=== PATIENT | male | born 1945 | race Caucasian/White ===

== ENCOUNTER 2022-10-03 08:38 | Inpatient (IN) | payer MEDICARE, OTHER ==
[2022-10-03] MEDS ORDERED: HYDROmorphone 0.5 MG/0.5 ML SYRINGE IVP STA ×2 (08:43→10:34)
--- NOTE | 2022-10-03 09:16 | ED ---
General Adult HPI - General Chief complaint: Shortness of Breath Stated complaint: sob Time Seen by Provider: 10/03/22 08:45 Source: patient, RN notes reviewed, old records reviewed Mode of arrival: ambulatory Limitations: no limitations - History of Present Illness Initial comments: This is a 77-year-old male who presents emergency department from [facility]. Patient has lung cancer and he had a pigtail placed to drain the pleural effusion however he had difficulty breathing so he came in last night. I was told by the ER physician at that facility that he also had a pneumothorax which they reduced by using some intermittent wall suction. Patient denies any fever or chills. Patient states the difficulty breathing has been getting worse over the last few days. Patient states he has chest pain and it makes it difficult to take a deep breath. Patient denies any abdominal pain. Patient has lightheadedness dizziness. Patient has any palpitations. - Related Data Home Medications Medication Instructions Recorded Confirmed Albuterol Sulfate [Albuterol 1 - 2 puff INHALATION RT-Q4H PRN 09/12/22 09/26/22 Sulfate Hfa] [id number] 2 tab PO DAILY 09/12/22 09/26/22 [Excedrin] Cayenne Pepper(Unknown) 1 cap PO DAILY 09/12/22 09/26/22 Famotidine [Pepcid] 20 mg PO DAILY 09/12/22 09/26/22 Loperamide HCl [Imodium A-D] 2 mg PO DAILY PRN 09/12/22 09/26/22 Tiotropium 2.5 Mcg/Puff [Spiriva 1 puff INHALATION RT-DAILY 09/12/22 09/26/22 Respimat 2.5 Mcg] predniSONE See Taper PO HS 09/26/22 09/26/22 Previous Rx's Medication Instructions Recorded Budesonide/Formoterol Fumarate 1 puff INHALATION BID #10.2 gm 09/15/22 [Symbicort 80-4.5 Mcg Inhaler] Cyclobenzaprine [Flexeril] 10 mg PO HS #30 tab 09/29/22 guaiFENesin [Mucinex] 600 mg PO QID #100 tab 09/29/22 Allergies Allergy/AdvReac Type Severity Reaction Status Date / Time azithromycin [From Zithromax] AdvReac Nausea & Verified 10/03/22 08:46 Vomiting Review of Systems ROS Statement: Those systems with pertinent positive or pertinent negative responses have been documented in the HPI. ROS Other: All systems not noted in ROS Statement are negative. Past Medical History Past Medical History: Cancer, COPD, GERD/Reflux Additional Past Medical History / Comment(s): Recently diagnosed metastatic adenocarcinoma, lung primary, history of colitis History of Any Multi-Drug Resistant Organisms: None Reported Additional Past Surgical History / Comment(s): cyst to watts apple 40 yrs ago Past Anesthesia/Blood Transfusion Reactions: No Reported Reaction Past Psychological History: No Psychological Hx Reported Smoking Status: Former smoker Past Alcohol Use History: Rare Past Drug Use History: None Reported - Past Family History Mother Family Medical History: Dementia Additional Family Medical History / Comment(s): Hepatitis C after receiving a blood transfusion and later developed cirrhosis of the liver Father Family Medical History: Cancer Additional Family Medical History / Comment(s): Past away at age 39 from Hodgkin's disease General Exam - General Exam Comments Initial Comments: GENERAL: Patient is well-developed and well-nourished. Patient is nontoxic and well- hydrated and is in mild distress. ENT: Neck is soft and supple. No significant lymphadenopathy is noted. Oropharynx is clear. Moist mucous membranes. Neck has full range of motion without eliciting any pain. EYES: The sclera were anicteric and conjunctiva were pink and moist. Extraocular movements were intact and pupils were equal round and reactive to light. Eyelids were unremarkable. PULMONARY: Patient has decreased breath sounds on the right. CARDIOVASCULAR: Patient is tachycardic at about 110 beats a minute ABDOMEN: Soft and nontender with normal bowel sounds. SKIN: Skin is clear with no lesions or rashes and otherwise unremarkable. NEUROLOGIC: Patient is alert and oriented x3. Cranial nerves II through XII are grossly intact. Motor and sensory are also intact. Normal speech, volume and content. Symmetrical smile. MUSCULOSKELETAL: Normal extremities with adequate strength and full range of motion. No lower extremity swelling or edema. No calf tenderness. LYMPHATICS: No significant lymphadenopathy is noted PSYCHIATRIC: Normal psychiatric evaluation. Limitations: no limitations Course Vital Signs 10/03/22 10/03/22 10/03/22 08:42 08:50 10:18 Temperature 98.1 F Pulse Rate 53 L 116 H Respiratory 24 22 20 Rate Blood Pressure 126/73 104/71 O2 Sat by Pulse 15 L 94 L Oximetry Medical Decision Making - Medical Decision Making EKG was interpreted by myself as a sinus tachycardia with occasional PAC at a rate of 109 bpm WV interval is 152 QRS 102 QT interval 370 QTC is 371. Patient's EKG shows no ST segment elevation or depression. Was pt. sent in by a medical professional or institution (, MARGRET, HEALTH SCIENCE INSTRUCTOR, urgent care, hospital, or group home...) When possible be specific @ -Patient was sent to us by an ER physician at [facility] Did you speak to anyone other than the patient for history (EMS, parent, family, police, friend...)? What history was obtained from this source @ -EMS gave us the history from the other hospital as to the physician who called from [facility] Did you review nursing and triage notes (agree or disagree)? Why? @ -I reviewed and agree with nursing and triage notes Were old charts reviewed (outside hosp., previous admission, EMS record, old EKG, old radiological studies, urgent care reports/EKG's, group home records)? Report findings @ -I reviewed all lab work from the previous hospital as well as CAT scan and x-rays. Differential Diagnosis (chest pain, altered mental status, abdominal pain women, abdominal pain men, vaginal bleeding, weakness, fever, dyspnea, syncope, headache, dizziness, GI bleed, back pain, seizure, CVA, palpatations, mental health, musculoskeletal)? @ -Differential Dyspnea: Coronary syndrome, arrhythmia, tamponade, asthma, COPD, pulmonary embolism, pneumonia, pneumothorax, pulmonary effusion, anaphylaxis, diabetic ketoacidosis, flailed chest, pulmonary contusion, diaphragmatic rupture, anemia, neuromuscular, this is not meant to be an all-inclusive list. EKG interpreted by me (3pts min.). @ -As above X-rays interpreted by me (1pt min.). @ -Chest x-ray was interpreted by myself shows 75% pneumothorax on the right pigtail. Patient placed CT interpreted by me (1pt min.). @ -None done U/S interpreted by me (1pt. min.). @ -None done What testing was considered but not performed or refused? (CT, X-rays, U/S, labs)? Why? @ -None What meds were considered but not given or refused? Why? @ -None Did you discuss the management of the patient with other professionals (professionals i.e. Dr., PA, HEALTH SCIENCE INSTRUCTOR, lab, RT, psych nurse, social science instructor, lead generation specialist, teacher, correctional officer sergeant, caseworker intake)? Give summary @ -I spoke with Dr. Richards and his nurse practitioner Garima. Was smoking cessation discussed for >3mins.? @ -No Was critical care preformed (if so, how long)? @ -No Were there social determinants of health that impacted care today? How? (Homelessness, low income, unemployed, alcoholism, drug addiction, transportation, low edu. Level, literacy, decrease access to med. care, prison, rehab)? @ -No Was there de-escalation of care discussed even if they declined (Discuss DNR or withdrawal of care, Hospice)? DNR status @ -No What co-morbidities impacted this encounter? (DM, HTN, Smoking, COPD, CAD, Cancer, CVA, ARF, Chemo, Hep., AIDS, mental health diagnosis, sleep apnea, morbid obesity)? @ -Lung cancer Was patient admitted / discharged? Hospital course, mention meds given and route, prescriptions, significant lab abnormalities, going to OR and other pertinent info. @ -Patient has a pneumothorax and he came down with the patient to a Pleur-evac and patient will be admitted to Dr. Casas whom I spoke with. Also Dr. Sanchez will be consulted. Undiagnosed new problem with uncertain prognosis? @ -No Drug Therapy requiring intensive monitoring for toxicity (Heparin, Nitro, Insulin, Cardizem)? @ -No Were any procedures done? @ -No Diagnosis/symptom? @ -Pneumothorax Acute, or Chronic, or Acute on Chronic? @ -Acute Uncomplicated (without systemic symptoms) or Complicated (systemic symptoms)? @ -Complicated Side effects of treatment? @ -No Exacerbation, Progression, or Severe Exacerbation? @ -No Poses a threat to life or bodily function? How? (Chest pain, [place], [place], pneumonia, PE, COPD, DKA, ARF, appy, cholecystitis, CVA, Diverticulitis, Homicidal, Suicidal, threat to staff... and all critical care pts) @ -Yes is completely to hypoxia Disposition Clinical Impression: Pneumothorax, History of lung cancer Disposition: ADMITTED IP TO THIS HOSP Referrals: Freddy Solano MD [Primary Care Provider] - 1-2 days Time of Disposition: 10:38
--- NOTE | 2022-10-03 09:29 | XR ---
EXAMINATION TYPE: XR chest 2V DATE OF EXAM: 10/03/2022 8:59 AM COMPARISON: Chest radiographs from 09/28/2022 TECHNIQUE: XR chest 2V Frontal and lateral views of the chest. CLINICAL INDICATION:Male, 77 years old with history of Difficulty breathing ; FINDINGS: Lungs/Pleura: The left lung is clear. There is layering right pleural effusion and pneumothorax. Pulmonary vascularity: Unremarkable. Heart/mediastinum: Cardiomediastinal silhouette is unremarkable. Musculoskeletal: No acute osseous pathology. Other findings: None Lines/Tubes: Right thoracotomy tube with pneumothorax appears similar. IMPRESSION: Persistent right-sided hydropneumothorax with thoracotomy tube in place
[2022-10-03] MEDS ORDERED: SODIUM CHLORIDE 0.9% 1,000 ML IV ONE (10:38)
--- NOTE | 2022-10-03 11:27 | P.CNPUL ---
History of Present Illness Consult date: 10/03/22 Reason for consult: dyspnea, chest pain History of present illness: This is a 77-year-old male who presents emergency department from [facility]. This patient was recently diagnosed having a stage IV adenocarcinoma of the lung. He had a right-sided pleural effusion. Thoracentesis was done and the pleural fluid cytology was positive for malignancy. Based on all this, the patient was given a Pleurx catheter and the patient was discharged home and he was supposed to undergo outpatient drainage of the pleural fluid and follow-up with oncology. 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 Noted the patient had difficulty breathing so he came in last night. He went to [facility] and a chest x- ray was done which again showed a trapped lung with a right lung has not completely expanded and the rise catheter remains in a good location.. Patient denies any fever or chills. Patient states the difficulty breathing has been getting worse over the last few days. Patient states he has chest pain and it makes it difficult to take a deep breath. Patient denies any abdominal pain. Patient has lightheadedness dizziness. Patient has any palpitations. He is currently on 15 L of oxygen by nasal cannula. He is running a sodium level of 125 with a potassium level of 4.6, chlorides 91 with a bicarb of 29. His chest x-ray showed a persistent right-sided hydropneumothorax,. The patient told me that the visiting nurses came out to his house and tried to drain the pleural fluid on which is essentially 2 days ago under was no significant output. Subsequently became more short of breath and up coming back to the hospital. A CAT scan of the chest that was done at [facility] showed a right-sided hydropneumothorax. There was right-sided pleural fluid and the pleural catheter was directed posteriorly. No evidence of any pulmonary embolism. Left lung was essentially clear. PET scan was done outpatient basis and ovaries results are not out yet. Based on my review, the patient has right hilar and subcarinal lymphadenopathy which has shown increased metabolic activity and there were patent avid. At the same time, the right lower lobe was showing intense metabolic activity and there was a right-sided hydropneumothorax. Official report is still pending on the PET/CT. Review of Systems Constitutional: Reports as per HPI Eyes: denies as per HPI, denies blurred vision, denies bulging eye, denies decreased vision, denies diplopia, denies discharge, denies dry eye, denies irritation, denies itching, denies pain, denies photophobia, denies loss of peripheral vision, denies loss of vision, denies tunnel vision/blind spots Ears: deny: decreased hearing, ear discharge, earache, tinnitus Ears, nose, mouth and throat: Reports as per HPI Breasts: absent: as per HPI, gynecomastia Cardiovascular: Reports dyspnea on exertion Respiratory: Reports dyspnea Gastrointestinal: Reports as per HPI Genitourinary: Reports as per HPI Musculoskeletal: Reports as per HPI Musculoskeletal: absent: ankle pain, ankle stiffness, ankle swelling Integumentary: Reports as per HPI Neurological: Reports as per HPI Psychiatric: Reports as per HPI Endocrine: Reports as per HPI Hematologic/Lymphatic: Reports as per HPI Allergic/Immunologic: Reports as per HPI Past Medical History Past Medical History: Cancer, COPD, GERD/Reflux Additional Past Medical History / Comment(s): Recently diagnosed metastatic adenocarcinoma, lung primary, history of colitis History of Any Multi-Drug Resistant Organisms: None Reported Additional Past Surgical History / Comment(s): cyst to watts apple 40 yrs ago Past Anesthesia/Blood Transfusion Reactions: No Reported Reaction Past Psychological History: No Psychological Hx Reported Smoking Status: Former smoker Past Alcohol Use History: Rare Past Drug Use History: None Reported - Past Family History Mother Family Medical History: Dementia Additional Family Medical History / Comment(s): Hepatitis C after receiving a bl ood transfusion and later developed cirrhosis of the liver Father Family Medical History: Cancer Additional Family Medical History / Comment(s): Past away at age 39 from Hodgkin's disease Medications and Allergies Home Medications Medication Instructions Recorded Confirmed Type Albuterol Sulfate [Albuterol 1 - 2 puff INHALATION RT-Q4H PRN 09/12/22 10/03/22 History Sulfate Hfa] [id number] 2 tab PO DAILY 09/12/22 10/03/22 History [Excedrin] Cayenne Pepper(Unknown) 1 cap PO DAILY 09/12/22 10/03/22 History Famotidine [Pepcid] 20 mg PO DAILY 09/12/22 10/03/22 History Loperamide HCl [Imodium A-D] 2 mg PO DAILY PRN 09/12/22 10/03/22 History Tiotropium 2.5 Mcg/Puff [Spiriva 1 puff INHALATION RT-DAILY 09/12/22 10/03/22 History Respimat 2.5 Mcg] Cyclobenzaprine [Flexeril] 10 mg PO HS #30 tab 09/29/22 10/03/22 Rx guaiFENesin [Mucinex] 600 mg PO QID #100 tab 09/29/22 10/03/22 Rx Budesonide/Formoterol Fumarate 1 puff INHALATION RT-BID 10/03/22 10/03/22 History [Symbicort 80-4.5 Mcg Inhaler] Allergies Allergy/AdvReac Type Severity Reaction Status Date / Time azithromycin [From Zithromax] AdvReac Nausea & Verified 10/03/22 08:46 Vomiting Physical Exam Vitals: Vital Signs Temp Pulse Resp BP Pulse Ox 10/03/22 10:18 116 H 20 104/71 94 L 10/03/22 08:50 22 10/03/22 08:42 98.1 F 53 L 24 126/73 15 L Intake and Output 10/02/22 10/03/22 10/03/22 22:59 06:59 14:59 Other: Weight 70.307 kg No acute distress, oriented 3. Currently on 15 L of oxygen. No respiratory distress, audible wheezing, or use of accessory muscles. HEENT examination is grossly unremarkable. Neck supple. Full range of motion. No adenopathy thyromegaly or neck vein distention. Cardiovascular examination reveals regular rhythm rate. S1-S2 normal. No S3 or S4. No discernible murmur noted. Heart rate 87 bpm. Lungs Left lung appears clear. Currently on 3 L of oxygen by nasal cannula. Patient also has a right-sided Pleurx catheter in place. Abdomen soft bowel sounds are heard. No masses or tenderness. Extremities are intact. No cyanosis or clubbing. There is lower extremity e isabell. Skin is without rash or lesion. Neurologic examination is brief but nonfocal. Results - Diagnostic Findings Chest x-ray: image reviewed Assessment and Plan Plan: Stage IV adenocarcinoma of the lung Recurrent malignant right-sided pleural effusion, secondary to adenocarcinoma of the lung. The patient is post Pleurx catheter insertion. There is a possibility the Pleurx catheter is not functioning appropriately. Unable to drain The fluid by the visiting nurses. Furthermore, the CAT scan of the chest shows that the catheter tip is within the right hemithorax. Nevertheless, there is persistent hydropneumothorax in the right lung. I do believe that the right lung is essentially trapped and there is significant amount of tumor and the posterior right lower lobe. At same time, there is a possibility that the patient's pleural catheter is plugged are not sufficiently draining/malfunctioning of this persistent hydropneumothorax despite attempts to drain Trapped lung with residual pneumothorax on the right which is estimated to be in the order of 50% , also rule out possibility of endobronchial tumor obstructing the right lower lobe bronchus. Acute hypoxic respiratory failure secondary to above and the patient, is currently on 15 L of oxygen by nasal cannula Shortness of breath secondary to above Recent diagnosis of lung cancer, adenocarcinoma, from pleural fluid analysis. 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 Prior history of heavy tobacco use. Remote history of positive PPD/latent TB infection (LTBI), treated with INH for 9 months. Plan: Attached a Pleurx catheter to pleural VAC If unable to drain the pleural fluid, may consider TPA Wean FiO2 as tolerated Resume all medications Prognosis remains poor based above-mentioned comorbidities. Consult cardiothoracic surgery
[2022-10-03] MEDS ORDERED: ALBUTEROL HFA INHALER INHALATION PRN (11:34)
--- NOTE | 2022-10-03 11:40 | P.HPIM ---
History of Present Illness This is a pleasant 77 years old male with past medical history of COPD, GERD/Reflux,Recently diagnosed metastatic adenocarcinoma, lung primary, history of colitis he was recently discharged from this hospital 3 days ago for recurrent malignant right-sided pleural effusion secondary to pulmonary adenocarcinoma. Status post Pleurx catheter insertion, at that time he had right leg pneumothorax about 50% with acute hypoxic respiratory failure. After discharge patient was getting progressive shortness of breath, he wants to [facility] where he was referred back to this facility on admission patient is afebrile, tachycardic, slightly tachypneic, he has difficulty talking because of the pleuritic chest pain, he is saturating 95% on 8 L oxygen via nasal cannula he has computed tomography scan done at [facility] showing no evidence of pulmonary embolism, large right-sided hydropneumothorax also there was right- sided chest tube anteriorly with possibility of tube malfunctioning. There is extensive right lower lobe consolidation and atelectasis with subcarinal lymphadenopathy patient afebrile, no leukocytosis, rest of CBC is unremarkable with a platelet 260 and hemoglobin 12.9 Sodium is low at 125, glucose 157 which is slightly up. Rest of the BMP, liver enzymes are unremarkable. INR is normal. Review of Systems Review of systems CONSTITUTIONAL: No fever, no malaise, no fatigue. HEENT: No recent visual problems or hearing problems. Denied any sore throat. CARDIOVASCULAR: No orthopnea, PND, no palpitations, no syncope. PULMONARY: No shortness of breath, no cough, no hemoptysis. GASTROINTESTINAL: No diarrhea, no nausea, no vomiting, no abdominal pain. Normoactive bowel sounds. NEUROLOGICAL: No headaches, no weakness, no numbness. HEMATOLOGICAL: Denies any bleeding or petechiae. GENITOURINARY: Denies any burning micturition, frequency, or urgency. MUSCULOSKELETAL/RHEUMATOLOGICAL: Denies any joint pain, swelling, or any muscle pain. ENDOCRINE: Denies any polyuria or polydipsia. Past Medical History Past Medical History: Cancer, COPD, GERD/Reflux Additional Past Medical History / Comment(s): Recently diagnosed metastatic adenocarcinoma, lung primary, history of colitis History of Any Multi-Drug Resistant Organisms: None Reported Additional Past Surgical History / Comment(s): cyst to watts apple 40 yrs ago Past Anesthesia/Blood Transfusion Reactions: No Reported Reaction Past Psychological History: No Psychological Hx Reported Smoking Status: Former smoker Past Alcohol Use History: Rare Past Drug Use History: None Reported - Past Family History Mother Family Medical History: Dementia Additional Family Medical History / Comment(s): Hepatitis C after receiving a blood transfusion and later developed cirrhosis of the liver Father Family Medical History: Cancer Additional Family Medical History / Comment(s): Past away at age 39 from H odgkin's disease Medications and Allergies Home Medications Medication Instructions Recorded Confirmed Type Albuterol Sulfate [Albuterol 1 - 2 puff INHALATION RT-Q4H PRN 09/12/22 10/03/22 History Sulfate Hfa] [id number] 2 tab PO DAILY 09/12/22 10/03/22 History [Excedrin] Cayenne Pepper(Unknown) 1 cap PO DAILY 09/12/22 10/03/22 History Famotidine [Pepcid] 20 mg PO DAILY 09/12/22 10/03/22 History Loperamide HCl [Imodium A-D] 2 mg PO DAILY PRN 09/12/22 10/03/22 History Tiotropium 2.5 Mcg/Puff [Spiriva 1 puff INHALATION RT-DAILY 09/12/22 10/03/22 History Respimat 2.5 Mcg] Cyclobenzaprine [Flexeril] 10 mg PO HS #30 tab 09/29/22 10/03/22 Rx guaiFENesin [Mucinex] 600 mg PO QID #100 tab 09/29/22 10/03/22 Rx Budesonide/Formoterol Fumarate 1 puff INHALATION RT-BID 10/03/22 10/03/22 History [Symbicort 80-4.5 Mcg Inhaler] Allergies Allergy/AdvReac Type Severity Reaction Status Date / Time azithromycin [From Zithromax] AdvReac Nausea & Verified 10/03/22 08:46 Vomiting Physical Exam Vitals: Vital Signs Temp Pulse Resp BP Pulse Ox 10/03/22 11:07 98.1 F 112 H 20 116/83 95 10/03/22 10:18 116 H 20 104/71 94 L 10/03/22 08:50 22 10/03/22 08:42 98.1 F 53 L 24 126/73 15 L Intake and Output 10/02/22 10/03/22 10/03/22 22:59 06:59 14:59 Other: Weight 70.307 kg GENERAL: The patient is alert and oriented x3, not in any acute distress. Well developed, well nourished. HEENT: Pupils are round and equally reacting to light. EOMI. No scleral icterus. No conjunctival pallor. Normocephalic, atraumatic. No pharyngeal erythema. No thyromegaly. CARDIOVASCULAR: S1 and S2 present. No murmurs, rubs, or gallops. PULMONARY: Chest is clear to auscultation, no wheezing or crackles. ABDOMEN: Soft, nontender, nondistended, normoactive bowel sounds. No palpable organomegaly. MUSCULOSKELETAL: No joint swelling or deformity. EXTREMITIES: No cyanosis, clubbing, or pedal edema. NEUROLOGICAL: Gross neurological examination did not reveal any focal deficits. SKIN: No rashes. no petechiae. Assessment and Plan Assessment: Extensive right-sided hydropneumothorax with atelectasis with resultant acute hypoxic respiratory failure Recent history of recurrent malignant right-sided pleural effusion secondary to lung cancer status post Pegtail catheter right lung adenocarcinoma worsening hyponatremia most likely secondary to SIADH Acute on chronic hypoxic respiratory failure. History of COPD, no connective tissue Plan: Continue with chest tube Pulmonary and cardiothoracic surgery consult already placed Oxygen as needed and bronchodilator Continue with fluid restriction and monitor sodium level Patient will require to follow-up with oncologist as an outpatient Continue with gentle hydration, currently on normal saline at 75 mL/h Labs and medication were reviewed.. Continue same treatment. Continue with symptomatic treatment. Resume home medication. Monitor labs and vitals. DVT and GI prophylaxis. Further recommendations as per clinical course of the patient DVT prophylaxis: Subcutaneous heparin GI Prophylaxis: Pepcid PT/OT: Pending Prognosis is guarded
[2022-10-03] MEDS: ALBUTEROL HFA INHALER INHALATION SCH ×3 (11:42→21:30)
[2022-10-03] MEDS: TIOTROPIUM 2.5 MCG INHALER INHALATION SCH (11:42)
[2022-10-03] MEDS: SYMBICORT 80-4.5 MCG INHALER INHALATION SCH ×2 (11:42→21:30)
[2022-10-03] MEDS: guaiFENesin 600 MG TABLET.ER PO SCH ×3 (12:09→23:04)
[2022-10-03] MEDS ORDERED: HYDROmorphone 1 MG/ML 1 ML SYRINGE IVP STA ×2 (16:22→23:25)
[2022-10-03] MEDS ORDERED: HYDROmorphone 0.5 MG/0.5 ML SYRINGE IVP PRN (16:30)
[2022-10-03] MEDS: SODIUM CHLORIDE 0.9% 1,000 ML IV SCH ×2 (16:51)
[2022-10-03 19:43] LABS: MCH 27.7 pg (25.0-35.0); MCHC 32.5 g/dL (31.0-37.0); MCV 85.1 fL (80.0-100.0); Mean Platelet Volume 7.5; Platelet Count 246 k/uL (150-450); RDW 14.1 % (11.5-15.5); WBC 6.5 k/uL (3.8-10.6)
[2022-10-03] MEDS: CYCLOBENZAPRINE 10 MG TAB PO SCH (19:47)
[2022-10-03] MEDS: HEPARIN SODIUM,PORCINE/PF 5,000 UNIT/0.5 ML SYRINGE SQ SCH (19:47)
[2022-10-03] MEDS: HYDROmorphone 1 MG/ML 1 ML SYRINGE IVP PRN (19:48)
[2022-10-03 19:54] LABS: Calcium 8.3 mg/dL (8.4-10.2); Potassium 5.4 mmol/L (3.5-5.1)
[2022-10-03] MEDS ORDERED: SYMBICORT 80-4.5 MCG INHALER INHALATION SCH (20:00)
[2022-10-03 20:41] LABS: Band Neutrophils % 25 %; Lymphocytes # (M) 0.26 k/uL (1.0-4.8); Metamyelocytes # (M) 0.26 k/uL (0); Metamyelocytes % 4 %; Monocytes # (M) 0.91 k/uL (0-1.0); Myelocytes # (M) 0.13 k/uL (0); Myelocytes % 2 %; Neutrophils % (M) 52 %; Nucleated Red Blood Cells 0 /100 WBC (0-0); Total Cells Counted 200
[2022-10-03 20:42] LABS: RBC Morphology Normal
[2022-10-03 20:44] LABS: Toxic Vacuolation Present
[2022-10-04] MEDS: HYDROmorphone 1 MG/ML 1 ML SYRINGE IVP PRN ×5 (04:39→23:13)
[2022-10-04] MEDS: SODIUM CHLORIDE 0.9% 1,000 ML IV SCH ×2 (06:03→07:01)
[2022-10-04 07:48] LABS: Basophils % (A) 0 %; Eosinophils % (A) 0 %; HCT 40.1 % (39.0-53.0); HGB 12.7 gm/dL (13.0-17.5); Lymphocytes # (A) 0.3 k/uL (1.0-4.8); Lymphocytes % (A) 5 %; MCHC 31.6 g/dL (31.0-37.0); MCV 85.6 fL (80.0-100.0); Mean Platelet Volume 7.8; Monocytes # (A) 0.5 k/uL (0-1.0); Monocytes % (A) 8 %; Neutrophils # (A) 5.9 k/uL (1.3-7.7); Neutrophils % (A) 84 %; Platelet Count 249 k/uL (150-450); RBC 4.68 m/uL (4.30-5.90); WBC 6.9 k/uL (3.8-10.6)
[2022-10-04 08:00] LABS: Calcium 8.6 mg/dL (8.4-10.2); Potassium 5.8 mmol/L (3.5-5.1)
[2022-10-04] MEDS ORDERED: NON FORMULARY DRUG (Tiotropium 2.5 Mcg/Puff 10 PUFF Each) INHALATION SCH (08:00)
[2022-10-04] MEDS: SYMBICORT 80-4.5 MCG INHALER INHALATION SCH ×2 (08:50→20:07)
[2022-10-04] MEDS: ALBUTEROL HFA INHALER INHALATION SCH ×4 (08:50→20:07)
[2022-10-04] MEDS: TIOTROPIUM 2.5 MCG INHALER INHALATION SCH (08:51)
[2022-10-04] MEDS: FAMOTIDINE 20 MG TAB PO SCH (09:19)
[2022-10-04] MEDS: HEPARIN SODIUM,PORCINE/PF 5,000 UNIT/0.5 ML SYRINGE SQ SCH (09:19)
[2022-10-04] MEDS: guaiFENesin 600 MG TABLET.ER PO SCH ×4 (09:19→20:33)
[2022-10-04] MEDS ORDERED: HYDROmorphone 1 MG/ML 1 ML SYRINGE IVP STA (09:36)
--- NOTE | 2022-10-04 10:31 | P.PN ---
Subjective Progress Note Date: 10/04/22 This is a 77-year-old male who presents emergency department from [facility]. This patient was recently diagnosed having a stage IV adenocarcinoma of the lung. He had a right-sided pleural effusion. Thoracentesis was done and the pleural fluid cytology was positive for malignancy. Based on all this, the patient was given a Pleurx catheter and the patient was discharged home and he was supposed to undergo outpatient drainage of the pleural fluid and follow-up with oncology. 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 Noted the patient had difficulty breathing so he came in last night. He went to [facility] and a chest x- ray was done which again showed a trapped lung with a right lung has not completely expanded and the rise catheter remains in a good location.. Patient denies any fever or chills. Patient states the difficulty breathing has been getting worse over the last few days. Patient states he has chest pain and it makes it difficult to take a deep breath. Patient denies any abdominal pain. Patient has lightheadedness dizziness. Patient has any palpitations. He is currently on 15 L of oxygen by nasal cannula. He is running a sodium level of 125 with a potassium level of 4.6, chlorides 91 with a bicarb of 29. His chest x-ray showed a persistent right-sided hydropneumothorax,. The patient told me that the visiting nurses came out to his house and tried to drain the pleural fluid on which is essentially 2 days ago under was no significant output. Subsequently became more short of breath and up coming back to the hospital. A CAT scan of the chest that was done at [facility] showed a right-sided hydropneumothorax. There was right-sided pleural fluid and the pleural catheter was directed posteriorly. No evidence of any pulmonary embolism. Left lung was essentially clear. PET scan was done outpatient basis and ovaries results are not out yet. Based on my review, the patient has right hilar and subcarinal lymphadenopathy which has shown increased metabolic activity and there were patent avid. At the same time, the right lower lobe was showing intense metabolic activity and there was a right-sided hydropneumothorax. Official report is still pending on the PET/CT. Today's evaluation of 10/04/2022, slightly less short of breath compared to yesterday and the patient remains on 10 L of O2 cannula. The Pleurx catheter is attached to a Pleur-evac and the total amount of output since yesterday's blood in the order of 900 mL of pleural fluid. No evidence of any air leak. The repeat chest x-ray shows a right-sided hydropneumothorax. He has a congested cough. Is weak and debilitated and is also developed a sore on his buttocks area. Review of the chest x-ray today shows a very tiny pneumothorax on the pneumothorax is improved. There is still some residual pleural effusion the right lung base. Catheter remains in a good location. There is interval improvement in chest x-ray findings regarding the hydropneumothorax why this patient being on a continuous suction. Objective - Vital Signs Vital signs: Vital Signs Temp 98.3 F 10/04/22 09:17 Pulse 112 H 10/04/22 09:17 Resp 28 H 10/04/22 09:17 BP 112/68 10/04/22 09:17 Pulse Ox 95 10/04/22 09:17 FiO2 Intake & Output 10/03/22 10/04/22 10/04/22 17:59 06:59 18:59 Intake Total Output Total Balance Weight Intake: Oral Output: Chest Tube Drainage Pleural Catheter Urine Other: Voiding Method - Exam No acute distress, oriented 3. Currently on 10 L of oxygen. No respiratory di stress, audible wheezing, or use of accessory muscles. HEENT examination is grossly unremarkable. Neck supple. Full range of motion. No adenopathy thyromegaly or neck vein distention. Cardiovascular examination reveals regular rhythm rate. S1-S2 normal. No S3 or S4. No discernible murmur noted. Lungs Left lung appears clear. Currently on 10 L of oxygen by nasal cannula. Patient also has a right-sided Pleurx catheter in place. Abdomen soft bowel sounds are heard. No masses or tenderness. Extremities are intact. No cyanosis or clubbing. There is lower extremity edema. Skin is without rash or lesion. Neurologic examination is brief but nonfocal. - Labs CBC & Chem 7: 10/04/22 07:27 10/04/22 07:27 Labs: Abnormal Lab Results - Last 24 Hours (Table) 03/11/23 03/11/23 03/12/23 Range/Units 19:23 19:23 07:27 Hgb 12.7 L (13.0-17.5) gm/dL Lymphocytes # 0.3 L (1.0-4.8) k/uL Lymphocytes # (Manual) 0.26 L (1.0-4.8) k/uL Metamyelocytes # (Man) 0.26 H (0) k/uL Myelocytes # (Manual) 0.13 H (0) k/uL Sodium 126 L (137-145) mmol/L Potassium 5.4 H (3.5-5.1) mmol/L Chloride 92 L (98-107) mmol/L BUN (9-20) mg/dL Creatinine (0.66-1.25) mg/dL Glucose 203 H (74-99) mg/dL Calcium 8.3 L (8.4-10.2) mg/dL 10/04/22 Range/Units 07:27 Hgb (13.0-17.5) gm/dL Lymphocytes # (1.0-4.8) k/uL Lymphocytes # (Manual) (1.0-4.8) k/uL Metamyelocytes # (Man) (0) k/uL Myelocytes # (Manual) (0) k/uL Sodium 126 L (137-145) mmol/L Potassium 5.8 H (3.5-5.1) mmol/L Chloride 94 L (98-107) mmol/L BUN 29 H (9-20) mg/dL Creatinine 1.37 H (0.66-1.25) mg/dL Glucose 179 H (74-99) mg/dL Calcium (8.4-10.2) mg/dL Assessment and Plan Plan: Stage IV adenocarcinoma of the lung Recurrent malignant right-sided pleural effusion, secondary to adenocarcinoma of the lung. The patient is post Pleurx catheter insertion. There is a possibility the Pleurx catheter is not functioning appropriately. Unable to drain The fluid by the visiting nurses. Furthermore, the CAT scan of the chest shows that the catheter tip is within the right hemithorax. Nevertheless, there is persistent hydropneumothorax in the right lung. I do believe that the right lung is essentially trapped and there is significant amount of tumor and the posterior right lower lobe. The Pleurx was contacted to the pleural VAC and there was 900 mL of fluid aspirated. On today's chest x-ray, there is the minor motion of the right-sided pneumothorax with residual right-sided pleural effusion. He is slightly improved and currently is on 10 L of oxygen by nasal cannula. Trapped lung with residual pneumothorax on the right which is estimated to be in the order of 50% , also rule out possibility of endobronchial tumor obstructing the right lower lobe bronchus. There is improvement in the pneumothorax is less than 10% on today's chest x-ray while being attached to a Pleur-evac and suction. Acute hypoxic respiratory failure secondary to above and the patient, is currently on an L of oxygen by nasal cannula Shortness of breath secondary to above Recent diagnosis of lung cancer, adenocarcinoma, from pleural fluid analysis. 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 Prior history of heavy tobacco use. Remote history of positive PPD/latent TB infection (LTBI), treated with INH for 9 months. Plan: Attached a Pleurx catheter to pleural VAC, continue continuous suctioning at this point in time. No evidence of any air leak Wean FiO2 as tolerated Resume all medications Prognosis remains poor based above-mentioned comorbidities. Extremely poor prognosis based on the above. Changes: Status of DNR/DNI and this is based on conversations that took place today between me and the patient in presence of his brother.
--- NOTE | 2022-10-04 10:42 | XR ---
EXAMINATION TYPE: XR chest 1V portable DATE OF EXAM: 10/04/2022 10:31 AM COMPARISON: Chest radiographs from 10/03/2022 TECHNIQUE: XR chest 1V portable Portable AP radiograph of the chest. CLINICAL INDICATION:Male, 77 years old with history of trapped lung; FINDINGS: Lungs/Pleura: There is no evidence of pleural effusion, focal consolidation, or pneumothorax. Chron ic interstitial changes of the lungs. Pulmonary vascularity: Unremarkable. Heart/mediastinum: Cardiomediastinal silhouette is unremarkable. Musculoskeletal: No acute osseous pathology. Right hydropneumothorax has decreased in both pneumothorax and pleural effusion. No pneumothorax visu alized. IMPRESSION: Right thoracotomy tube with resolution of right pneumothorax on prior. There is decrease in right ple ural effusion.
--- NOTE | 2022-10-04 10:44 | P.PN ---
Subjective This is a pleasant 77 years old male with past medical history of COPD, GERD/Reflux,Recently diagnosed metastatic adenocarcinoma, lung primary, history of colitis he was recently discharged from this hospital 3 days ago for recurrent malignant right-sided pleural effusion secondary to pulmonary adenocarcinoma. Status post Pleurx catheter insertion, at that time he had right leg pneumothorax about 50% with acute hypoxic respiratory failure. After discharge patient was getting progressive shortness of breath, he wants to [facility] where he was referred back to this facility on admission patient is afebrile, tachycardic, slightly tachypneic, he has difficulty talking because of the pleuritic chest pain, he is saturating 95% on 8 L oxygen via nasal cannula he has computed tomography scan done at [facility] showing no evidence of pulmonary embolism, large right-sided hydropneumothorax also there was right- sided chest tube anteriorly with possibility of tube malfunctioning. There is extensive right lower lobe consolidation and atelectasis with subcarinal lymphadenopathy patient afebrile, no leukocytosis, rest of CBC is unremarkable with a platelet 260 and hemoglobin 12.9 Sodium is low at 125, glucose 157 which is slightly up. Rest of the BMP, liver enzymes are unremarkable. INR is normal. 10/04/2022 Patient pain was not controlled increase Dilaudid to 1 mg every 3 hours. His chest x-ray showing improvement and resolution of the right pneumothorax and decrease right pleural effusion, chest tube remains in place Oxygen is 10 L/m this morning Sodium 126. Remains in normal saline at 75 mL/h Pulmonary team of the case and prognosis is guarded Objective - Vital Signs Vital signs: Vital Signs Temp 98.3 F 10/04/22 09:17 Pulse 112 H 10/04/22 09:17 Resp 28 H 10/04/22 09:17 BP 112/68 10/04/22 09:17 Pulse Ox 95 10/04/22 09:17 FiO2 Intake & Output 10/03/22 10/04/22 10/04/22 17:59 06:59 18:59 Intake Total Output Total Balance Weight Intake: Oral Output: Chest Tube Drainage Pleural Catheter Urine Other: Voiding Method - Exam GENERAL: The patient is alert and oriented x3, not in any acute distress. Well developed, well nourished. HEENT: Pupils are round and equally reacting to light. EOMI. No scleral icterus. No conjunctival pallor. Normocephalic, atraumatic. No pharyngeal erythema. No thyromegaly. CARDIOVASCULAR: S1 and S2 present. No murmurs, rubs, or gallops. -PULMONARY: Chest is clear to auscultation, no wheezing or crackles. Tachypnea, chest tube is in place ABDOMEN: Soft, nontender, nondistended, normoactive bowel sounds. No palpable organomegaly. MUSCULOSKELETAL: No joint swelling or deformity. EXTREMITIES: No cyanosis, clubbing, or pedal edema. NEUROLOGICAL: Gross neurological examination did not reveal any focal deficits. SKIN: No rashes. no petechiae. - Labs CBC & Chem 7: 10/04/22 07:27 10/04/22 07:27 Labs: Abnormal Lab Results - Last 24 Hours (Table) 10/03/22 10/03/22 10/04/22 Range/Units 19:23 19:23 07:27 Hgb 12.7 L (13.0-17.5) gm/dL Lymphocytes # 0.3 L (1.0-4.8) k/uL Lymphocytes # (Manual) 0.26 L (1.0-4.8) k/uL Metamyelocytes # (Man) 0.26 H (0) k/uL Myelocytes # (Manual) 0.13 H (0) k/uL Sodium 126 L (137-145) mmol/L Potassium 5.4 H (3.5-5.1) mmol/L Chloride 92 L (98-107) mmol/L BUN (9-20) mg/dL Creatinine (0.66-1.25) mg/dL Glucose 203 H (74-99) mg/dL Calcium 8.3 L (8.4-10.2) mg/dL 10/04/22 Range/Units 07:27 Hgb (13.0-17.5) gm/dL Lymphocytes # (1.0-4.8) k/uL Lymphocytes # (Manual) (1.0-4.8) k/uL Metamyelocytes # (Man) (0) k/uL Myelocytes # (Manual) (0) k/uL Sodium 126 L (137-145) mmol/L Potassium 5.8 H (3.5-5.1) mmol/L Chloride 94 L (98-107) mmol/L BUN 29 H (9-20) mg/dL Creatinine 1.37 H (0.66-1.25) mg/dL Glucose 179 H (74-99) mg/dL Calcium (8.4-10.2) mg/dL Assessment and Plan Assessment: Extensive right-sided hydropneumothorax with atelectasis with resultant acute hypoxic respiratory failure Recent history of recurrent malignant right-sided pleural effusion secondary to lung cancer status post Pegtail catheter right lung adenocarcinoma worsening hyponatremia most likely secondary to SIADH Acute on chronic hypoxic respiratory failure. History of COPD, no connective tissue Plan: Continue with chest tube Pulmonary and cardiothoracic surgery consult already placed Oxygen as needed and bronchodilator Continue with fluid restriction and monitor sodium level Patient will require to follow-up with oncologist as an outpatient Continue with gentle hydration, currently on normal saline at 75 mL/h Labs and medication were reviewed.. Continue same treatment. Continue with symptomatic treatment. Resume home medication. Monitor labs and vitals. DVT and GI prophylaxis. Further recommendations as per clinical course of the patient DVT prophylaxis: Subcutaneous heparin GI Prophylaxis: Pepcid PT/OT: Pending Prognosis is guarded
--- NOTE | 2022-10-04 11:22 | P.PN ---
Subjective Progress Note Date: 10/04/22 Principal diagnosis: Recurrent right-sided malignant pleural effusion status post placement of right- sided Pleurx catheter 09/28/22, metastatic adenocarcinoma with lung primary, acute hypoxic respiratory failure, trapped lung, COPD, previous tobacco dependence The patient was seen at the bedside with Dr. Sanchez. He is sitting up in bed on 10 L high flow nasal cannula. His right-sided Pleurx catheter was detached to a Pleur-evac yesterday with continuous wall suction, 950 mL bloody drainage since connection, chest x-ray completed this morning demonstrates good reexpansion of the lung with the Pleurx catheter on continuous suction. PET scan results reviewed with the patient revealing significant lung mass, unlikely to be amenable to any treatment options especially given patient's extreme fatigue and weakness as well as his current respiratory status. Discussion had at the bedside with Dr. Sanchez and the patient regarding his poor prognosis. Patient does state he does not want any heroic treatments, does not want to be intubated, is hoping to be discharged to home soon to live out however much of his life he has left at home. Patient very clearly expressed his wish to at home and not in the hospital. Objective - Vital Signs Vital signs: Vital Signs Temp 98.3 F 10/04/22 09:17 Pulse 112 H 10/04/22 09:17 Resp 28 H 10/04/22 09:17 BP 112/68 10/04/22 09:17 Pulse Ox 95 10/04/22 09:17 FiO2 Intake & Output 10/03/22 10/04/22 10/04/22 17:59 06:59 18:59 Intake Total Output Total Balance Weight Intake: Oral Output: Chest Tube Drainage Pleural Catheter Urine Other: Voiding Method - Exam CONSTITUTIONAL: Appears comfortable RESPIRATORY: Lungs sounds coarse bilaterally, right greater than left. Respirations even, slightly labored. Currently on 10 L high flow nasal cannula with oxygen saturation 95% CARDIOVASCULAR: S1, S2 present. Tachycardic but regular rate and rhythm, sinus tach on telemetry. Palpable peripheral pulses bilaterally GASTROINTESTINAL: Abdomen soft, nontender, nondistended. Active bowel sounds present 4 quadrants GENITOURINARY: Continues to void INTEGUMENTARY: Skin is warm and dry NEUROLOGIC: Cranial nerves II through XII intact MUSKULOSKELETAL: Able to move all extremities, strength equal bilaterally but generalized weakness present PSYCHIATRIC: Alert and oriented to person place and time, appropriate affect, intact judgment and insight INVASIVE LINES AND TUBES: Right Pleurx catheter present and connected to wall suction, no air leaks present, 950 mL bloody drainage since connected to atrium - Allied health notes Allied health notes reviewed: nursing - Labs CBC & Chem 7: 10/04/22 07:27 10/04/22 07:27 Labs: Abnormal Lab Results - Last 24 Hours (Table) 10/03/22 10/03/22 10/04/22 Range/Units 19:23 19:23 07:27 Hgb 12.7 L (13.0-17.5) gm/dL Lymphocytes # 0.3 L (1.0-4.8) k/uL Lymphocytes # (Manual) 0.26 L (1.0-4.8) k/uL Metamyelocytes # (Man) 0.26 H (0) k/uL Myelocytes # (Manual) 0.13 H (0) k/uL Sodium 126 L (137-145) mmol/L Potassium 5.4 H (3.5-5.1) mmol/L Chloride 92 L (98-107) mmol/L BUN (9-20) mg/dL Creatinine (0.66-1.25) mg/dL Glucose 203 H (74-99) mg/dL Calcium 8.3 L (8.4-10.2) mg/dL 10/04/22 Range/Units 07:27 Hgb (13.0-17.5) gm/dL Lymphocytes # (1.0-4.8) k/uL Lymphocytes # (Manual) (1.0-4.8) k/uL Metamyelocytes # (Man) (0) k/uL Myelocytes # (Manual) (0) k/uL Sodium 126 L (137-145) mmol/L Potassium 5.8 H (3.5-5.1) mmol/L Chloride 94 L (98-107) mmol/L BUN 29 H (9-20) mg/dL Creatinine 1.37 H (0.66-1.25) mg/dL Glucose 179 H (74-99) mg/dL Calcium (8.4-10.2) mg/dL - Imaging and Cardiology Chest x-ray: report reviewed, image reviewed Assessment and Plan Assessment: 1. Recurrent right-sided malignant pleural effusion status post placement of right-sided Pleurx catheter 09/28/22 2. Metastatic adenocarcinoma with lung primary 3. Acute hypoxic respiratory failure, currently on 10 L high flow nasal cannula 4. Trapped lung 5. COPD 6. Previous tobacco dependence Plan: The patient was seen with Dr. Sanchez at bedside, brother present. The patient expresses a wish to have no heroic measures taken. We did discuss the extensive nature of the lung mass seen on PET scan, and expressed concern to the patient that he is not a candidate currently for treatment due to the nature of his weakness and debility. The patient states he is hoping to be able to be discharged to home soon, states his wishes are in writing with his son, and very clearly states he does not wish to at the hospital but would rather be able to at home. For the current time being we will leave the Pleurx connected to continuous wall suction to allow drainage of fluid and to keep the lung e xpanded. Pain control per primary service. Wean O2 as tolerated. Supportive care. Consider hospice. Once patient able to be discharged Pleurx catheter can be capped and patient can be drained at home by home care. Please call us with any further questions.
[2022-10-04] MEDS ORDERED: FUROSEMIDE 10 MG/ML 4 ML VIAL IV STA ×2 (16:22→18:30)
[2022-10-04] MEDS ORDERED: FUROSEMIDE 10 MG/ML 4 ML VIAL ONE ×2 (16:25→18:31)
[2022-10-04] MEDS: PIPERACILLIN-TAZOBACTAM 3.375 GM in SODIUM CHLORIDE 0.9% 100 ML IVPB SCH (16:35)
[2022-10-04] MEDS ORDERED: ALPRAZolam 0.5 MG TAB PO PRN (16:47)
[2022-10-04 18:08] LABS: Glucose,Whole Blood 141 mg/dL (70-110)
[2022-10-04] MEDS ORDERED: DILTIAZEM DRIP BOLUS FROM BAG 1 MG SOLN IV ONE (18:14)
[2022-10-04] MEDS ORDERED: DILTIAZEM 125 MG in SODIUM CHLORIDE 0.9% 100 ML IV SCH (18:15)
--- NOTE | 2022-10-04 18:38 | XR ---
EXAMINATION TYPE: XR chest 1V portable DATE OF EXAM: 10/04/2022 6:13 PM COMPARISON: Earlier chest x-ray 10/04/2022, chest x-ray 10/03/2022 TECHNIQUE: XR chest 1V portable . CLINICAL INDICATION:Male, 77 years old with history of Increased SOB; FINDINGS: Lungs/Pleura: Prominent interstitial lung markings are seen scattered throughout the lungs. Atelectat ic changes of the right lung base. Persistent right pleural effusion, hazy appearance of the right marlon ng base likely from layering. Right thoracostomy tube is in without residual pneumothorax. Pulmonary vascularity: Unremarkable. Heart/mediastinum: Cardiomediastinal silhouette is unremarkable. Musculoskeletal: No acute osseous pathology. IMPRESSION: Right thoracostomy tube in place with no significant interval change in right pleural effusion from e arlier exam. No evidence for residual pneumothorax.
[2022-10-04] MEDS ORDERED: HEPARIN SODIUM 1,000 UN/ML (10ML VL) IV ONE (19:17)
[2022-10-04] MEDS ORDERED: HEPARIN SODIUM 1,000 UN/ML (10ML VL) IV PRN (19:17)
--- NOTE | 2022-10-04 19:17 | CT ---
EXAMINATION TYPE: CT chest abdomen w con CT DLP: 735.2 mGycm, Automated exposure control for dose reduction was used. DATE OF EXAM: 10/04/2022 6:58 PM COMPARISON: Chest x-ray 10/04/2022 , PET/CT 10/02/2022 CLINICAL INDICATION:Male, 77 years old with history of abdominal pain; PHH, abd pain, distention Technique: Multiple axial images of the chest and abdomen were obtained. Two-dimensional coronal and sagittal reconstructions were obtained. Contrast used:80 mL of Isovue 300 with IV Contrast, Oral contrast used: without Oral Contrast Findings: CHEST: LUNGS/ PLEURA: Trace right pleural effusion. Right thoracostomy tube is positioned within the pleural space posteriorly. Trace right apical pneumothorax (series 203, image 62). Right airspace consolida tion involving the majority of the posterior right lower lobe (series 201, image [id number]). Air bronchog vj are noted internally. Left lung is clear. Moderate to severe emphysematous changes bilaterally. AIRWAY: Large airways are patent. HEART: Size within normal limits. Trace pericardial effusion. MEDIASTINUM: No gross evidence of adenopathy. VASCULATURE: Atherosclerotic calcifications are present throughout the aorta and its branches. MUSCULOSKELETAL: Mild disc degeneration changes are present throughout the thoracic spine. SOFT TISSUES/LYMPH NODES: Unremarkable. LOWER NECK: No significant findings. ABDOMEN: ABDOMEN LIVER: Unremarkable GALLBLADDER AND BILE DUCTS: Excreted intravenous contrast layers internally. PANCREAS: Unremarkable. SPLEEN: Small splenule is present. ADRENAL GLANDS: Unremarkable. KIDNEYS AND URETERS: Left upper pole renal cysts, largest measures up to 2 cm. No evidence for hydron ephrosis bilaterally. ABDOMEN: STOMACH AND BOWEL: Mild gaseous distention of the stomach. Duodenum is normal in appearance.Visualize d small bowel is normal in caliber. Moderate gaseous distention of the colonic bowel measuring up to 6.5 cm in width. Fecal material is seen within the visualized descending and ascending colon. No defi nitive evidence of bowel obstruction. PERITONEUM: No evidence of pneumoperitoneum or free fluid. VASCULATURE: Severe atherosclerotic calcifications are present throughout the abdominal aorta and its branches. MUSCULOSKELETAL: No acute osseous abnormalities. Moderate disc degeneration changes are present throu ghout the lumbar spine. LYMPH NODES: No gross evidence for lymphadenopathy. SOFT TISSUE/ABDOMINAL WALL: Focal soft tissue emphysema along the midline anterior abdominal wall, carissa cai from medication injection. IMPRESSION: 1. Gaseous gastric and colonic bowel distention. Findings are suspected to represent an ileus with ob struction thought to be less likely. 2. Right lower lobe airspace consolidation, likely sequelae of hydropneumothorax. 3. Trace right apical pneumothorax with right thoracostomy tube in place. 4. Trace right pleural effusion. 5. Additional chronic and incidental findings as detailed above.
[2022-10-04] MEDS ORDERED: HEPARIN SOD,PORK IN 0.45% NACL 25,000 UNIT in 0.45% NACL 1 250ML.BAG IV SCH (19:30)
[2022-10-04] MEDS: CYCLOBENZAPRINE 10 MG TAB PO SCH (20:32)
[2022-10-04] MEDS: METOPROLOL TARTRATE 25 MG TAB PO SCH (20:33)
[2022-10-04 20:43] LABS: Partial Thromboplastin Time 28.9 sec (22.0-30.0); Prothrombin Time 10.2 sec (9.0-12.0)
[2022-10-04] MEDS ORDERED: METOPROLOL TARTRATE 25 MG TAB PO SCH (21:00)
[2022-10-04] MEDS ORDERED: SCOPOLAMINE 1 MG/72 HR PATCH TRANSDERM STA (23:01)
[2022-10-05] MEDS: PIPERACILLIN-TAZOBACTAM 3.375 GM in SODIUM CHLORIDE 0.9% 100 ML IVPB SCH ×2 (01:05→09:54)
[2022-10-05] MEDS: HYDROmorphone 1 MG/ML 1 ML SYRINGE IVP PRN (04:42)
[2022-10-05] MEDS: ALBUTEROL HFA INHALER INHALATION SCH ×3 (08:07→15:09)
[2022-10-05] MEDS: SYMBICORT 80-4.5 MCG INHALER INHALATION SCH (08:07)
[2022-10-05] MEDS: TIOTROPIUM 2.5 MCG INHALER INHALATION SCH (08:08)
[2022-10-05] MEDS: METOPROLOL TARTRATE 25 MG TAB PO SCH (09:02)
[2022-10-05] MEDS: guaiFENesin 600 MG TABLET.ER PO SCH (09:02)
[2022-10-05 09:07] VITALS: BP 93/62; TEMP 99.1
[2022-10-05] MEDS: FAMOTIDINE 20 MG TAB PO SCH (09:55)
[2022-10-05] MEDS ORDERED: MORPHINE SULFATE 4 MG/ML SYRINGE IVP PRN (12:29)
--- NOTE | 2022-10-05 13:14 | P.PN ---
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 This patient was recently diagnosed having a stage IV adenocarcinoma of the lung. He had a right-sided pleural effusion. Thoracentesis was done and the pleural fluid cytology was positive for malignancy. Based on all this, the patient was given a Pleurx catheter and the patient was discharged home and he was supposed to undergo outpatient drainage of the pleural fluid and follow-up with oncology. 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 Noted the patient had difficulty breathing so he came in last night. He went to [facility] and a chest x- ray was done which again showed a trapped lung with a right lung has not complet katharina expanded and the rise catheter remains in a good location.. Patient denies any fever or chills. Patient states the difficulty breathing has been getting worse over the last few days. Patient states he has chest pain and it makes it difficult to take a deep breath. Patient denies any abdominal pain. Patient has lightheadedness dizziness. Patient has any palpitations. He is currently on 15 L of oxygen by nasal cannula. He is running a sodium level of 125 with a potassium level of 4.6, chlorides 91 with a bicarb of 29. His chest x-ray showed a persistent right-sided hydropneumothorax,. The patient told me that the visiting nurses came out to his house and tried to drain the pleural fluid on which is essentially 2 days ago under was no significant output. Subsequently became more short of breath and up coming back to the hospital. A CAT scan of the chest that was done at [facility] showed a right-sided hydropneumothorax. There was right-sided pleural fluid and the pleural catheter was directed posteriorly. No evidence of any pulmonary embolism. Left lung was essentially clear. PET scan was done outpatient basis and ovaries results are not out yet. Based on my review, the patient has right hilar and subcarinal lymphadenopathy which has shown increased metabolic activity and there were patent avid. At the same time, the right lower lobe was showing intense metabolic activity and there was a right-sided hydropneumothorax. Official report is still pending on the PET/CT. Reevaluated today 10/05/2022, patient is on relatively high flow oxygen at 10 L, patient is asking to be discharged home, he would like to go and at home. Patient does not want any further workup does not want any diagnostic procedures does not want any treatment he prefers to be discharged home and he withdraws her dye on his own bed. Hence we'll consult pediatric social worker and possibly hospice to evaluate the patient for possible discharge planning since the patie nt is insisting on going home for comfort care measures Objective - Vital Signs Vital signs: Vital Signs Temp 99.1 F 10/05/22 09:06 Pulse 122 H 10/05/22 12:18 Resp 24 10/05/22 12:18 BP 93/62 10/05/22 09:06 Pulse Ox 94 L 10/05/22 09:06 FiO2 Intake & Output 10/04/22 10/05/22 10/05/22 18:59 06:59 18:59 Output Total 300 800 420 Balance -300 -800 -420 Output: Chest Tube Drainage 20 Pleural Catheter 20 Urine 300 800 400 Other: Voiding Method Urinal Indwelling Catheter Indwelling Catheter - Exam Physical Exam: Revealed a 77-year-old white male in no distress, on 10 L nasal cannula Head: Atraumatic normocephalic. HEENT:[Neck is supple.] [No neck masses.] [No thyromegaly.] [No JVD.] Chest: [Diminished breath sounds on the right side. And right-sided Pleurx catheter is noted..] Cardiac Exam: [Normal S1 and S2, no S3 gallop, no murmur.] Abdomen: [Soft, nontender, no megaly, no rebound, no guarding, normal bowel sounds.] Extremities: [No clubbing, no edema, no cyanosis.] Neurological Exam: [No focal neurologic deficit.] Alert oriented 3. Psychiatric: Normal mood affect and normal mental status examination. - Labs CBC & Chem 7: 10/04/22 07:27 10/04/22 07:27 Labs: Abnormal Lab Results - Last 24 Hours (Table) 10/04/22 Range/Units 18:06 POC Glucose (mg/dL) 141 H (70-110) mg/dL Assessment and Plan Assessment: Impression: Stage IV adenocarcinoma Recurrent right-sided pleural effusion Acute hypoxic respiratory failure, patient is requiring 10 L nasal cannula. 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 Family is at bedside, and agreeable to proceed with his wishes Prognosis is extremely poor. Time with Patient: Less than 30
[2022-10-05] MEDS ORDERED: HEPARIN SODIUM,PORCINE/PF 5,000 UNIT/0.5 ML SYRINGE SQ SCH (16:00)
[2022-10-05 17:25] VITALS: PULSE 129
[2022-10-05 17:27] VITALS: RESP 22
== END 2022-10-05 18:10 | disposition hospice, inpatient (51) | DRG 208 ==
LOC: EC 08:38 → 3SCARD 10:38
PROVIDERS: ADMIT Internal Medicine; ATTEND Internal Medicine
PROC: 5A1935Z Respiratory Ventilation, Less than 24 Consecutive Hours (ICD-10-PCS; principal; 2022-10-05)
DX: C34.31 Malignant neoplasm of lower lobe, right bronchus or lung (principal); J96.21 Acute and chronic respiratory failure with hypoxia; J91.0 Malignant pleural effusion; J94.8 Other specified pleural conditions; E22.2 Syndrome of inappropriate secretion of antidiuretic hormone; T85.618A Breakdown (mechanical) of other specified internal prosthetic devices, implants and grafts, initial encounter; J98.11 Atelectasis; J44.9 Chronic obstructive pulmonary disease, unspecified; R00.0 Tachycardia, unspecified; I49.1 Atrial premature depolarization; Z66 Do not resuscitate; Y82.8 Other medical devices associated with adverse incidents; Z51.5 Encounter for palliative care; Z87.891 Personal history of nicotine dependence; Z80.7 Family history of other malignant neoplasms of lymphoid, hematopoietic and related tissues; Z79.82 Long term (current) use of aspirin; Z79.51 Long term (current) use of inhaled steroids; Z22.7 Latent tuberculosis
CPT/HCPCS: 71045; 71046; 71260; 74160; 78815; 80048; 85025; 85610; 85730; 93005; 94640; 94760; 96374; 96375; 99285